=== PATIENT | female | born 1960 | race Caucasian/White ===

== ENCOUNTER → 2017-09-25 | Outpatient (CLI) | payer BC ==
[~2017-09-25] MED LIST: BUDE10.2 INH; CALC667C PO; CHOL100011 PO; CLON0.5T PO; CYAN1TAB29 PO; DULO60CA7 PO; HYOS0.1282 PO; LEVO88TA2 PO; LIDO5CRE19 TP; META800T PO; PREG100C PO; RANI150T4 PO; ROPI1TAB2 PO; SUMA1TAB PO; TRAM50TA2 PO
== END | disposition home or self-care (01) ==
LOC: STAR 09:36
PROVIDERS: ATTEND Thoracic Surgery (Cardiothoracic Vascular Surgery)
DX: Z01.818 Encounter for other preprocedural examination (principal); K21.9 Gastro-esophageal reflux disease without esophagitis; K44.9 Diaphragmatic hernia without obstruction or gangrene; M19.90 Unspecified osteoarthritis, unspecified site; G89.29 Other chronic pain; M81.0 Age-related osteoporosis without current pathological fracture
CPT/HCPCS: 93005

== ENCOUNTER 2017-10-11 05:17 | Observation (INO) | payer BC ==
[~2017-10-11] VITALS: Ht 170.2 cm; Wt 89.8 kg
[2017-10-11] MEDS ORDERED: LACTATED RINGERS 1,000 ML IV SCH (06:22)
[2017-10-11] MEDS ORDERED: FENTANYL PF 100 MCG/2ML ONE ×4 (07:23→09:22)
[2017-10-11] MEDS ORDERED: MIDAZOLAM 1 MG/ML, 2ML ONE (07:23)
[2017-10-11] MEDS ORDERED: PROPOFOL 10 MG/ML, 20ML ONE (07:25)
[2017-10-11] MEDS ORDERED: ROCURONIUM 10 MG/ML,10ML ONE (07:26)
[2017-10-11] MEDS ORDERED: DEXAMETHASONE 4 MG/ML, 1ML ONE ×2 (07:26)
[2017-10-11] MEDS ORDERED: ONDANSETRON 2MG/ML, 2ML ONE (07:26)
[2017-10-11] MEDS ORDERED: SUCCINYLCHOLINE 20 MG/ML, 10ML ONE (07:27)
[2017-10-11] MEDS ORDERED: NEOSTIGMINE 1 MG/ML, 10ML ONE (07:27)
[2017-10-11] MEDS ORDERED: SODIUM CHLORIDE 0.9% PF 10ML ONE (07:28)
[2017-10-11] MEDS ORDERED: GLYCOPYRROLATE 0.4 MG/2 ML, 2ML ONE (07:28)
[2017-10-11] MEDS ORDERED: CEFAZOLIN 1,000 MG ONE ×2 (07:28)
[2017-10-11] MEDS ORDERED: BUPIVACAINE/PF 0.5% ONE (07:42)
[2017-10-11] MEDS ORDERED: EPINEPHRINE 1 MG/ML, 1ML ONE (07:42)
[2017-10-11] MEDS ORDERED: MEPERIDINE/PF 25MG/0.5ML IVPush PRN ×2 (08:00→10:30)
[2017-10-11] MEDS ORDERED: HYDROmorphone 1 MG/ML, 1ML IV PRN ×2 (08:00→10:30)
[2017-10-11] MEDS ORDERED: PROMETHAZINE 25 MG/ML, 1ML IV PRN ×2 (08:00→10:30)
[2017-10-11] MEDS ORDERED: hydrALAzine 20 MG/ML, 1ML IV PRN ×3 (08:00→10:30)
[2017-10-11] MEDS ORDERED: OXYcodone 5 MG/5 ML ORAL.SOL UDC PO PRN ×2 (08:00→10:00)
[2017-10-11] MEDS ORDERED: FENTANYL PF 100 MCG/2ML IV PRN (08:00)
[2017-10-11] MEDS ORDERED: ONDANSETRON 2MG/ML, 2ML IVPush PRN ×3 (08:00→10:30)
[2017-10-11] MEDS ORDERED: ACETAMINOPHEN 325 MG TABLET PO PRN ×2 (08:00→10:30)
[2017-10-11] MEDS ORDERED: LABETALOL 5MG/ML, 20ML IV PRN ×2 (08:00→10:30)
[2017-10-11] MEDS: LACTATED RINGERS 1,000 ML IV SCH ×2 (09:06→17:06)
[2017-10-11] MEDS ORDERED: OXYcodone 5 MG/5 ML ORAL.SOL UDC ONE (09:22)
[2017-10-11] MEDS ORDERED: ACETAMINOPHEN 650 MG/20.3 ML UDC ONE (09:22)
[2017-10-11] MEDS ORDERED: PROMETHAZINE 25 MG/ML, 1ML IM PRN (09:30)
[2017-10-11] MEDS ORDERED: PROMETHAZINE 12.5 MG SUPP PR PRN (09:30)
[2017-10-11] MEDS ORDERED: HYDROcodone/APAP 7.5-325MG/15ML UDC PO PRN (09:30)
[2017-10-11] MEDS ORDERED: LORazepam 2 MG/ML, 1ML IV PRN (09:30)
[2017-10-11] MEDS ORDERED: DIPHENHYDRAMINE 50 MG/ML, 1ML IV PRN (09:30)
[2017-10-11] MEDS: FENTANYL PF 100 MCG/2ML IV PRN ×2 (09:30→09:40)
[2017-10-11] MEDS ORDERED: morphine SULFATE 10 MG/ML, 1ML IV PRN (09:30)
[2017-10-11] MEDS ORDERED: Budesonide/Formoterol Fumarate (Symbicort 160-4.5 Mcg Inhaler) INH SCH ×2 (09:30)
[2017-10-11] MEDS ORDERED: ENALAPRILAT 1.25 MG/ML, 2ML IV PRN (09:30)
[2017-10-11] MEDS ORDERED: HYDROmorphone 2 MG/ML, 1ML ONE (09:56)
[2017-10-11 10:35] VITALS: BP 104/70
[2017-10-11] MEDS ORDERED: FAMOTIDINE 20 MG/2 ML IV SCH (11:00)
[2017-10-11 13:32] VITALS: BP 123/84
[2017-10-11] MEDS ORDERED: CEFAZOLIN PMX 2GM/50ML 50 ML IVPB SCH (15:30)
[2017-10-11] MEDS ORDERED: PREGABALIN 100 MG CAPSULE PO SCH (16:00)
[2017-10-11 17:50] VITALS: BP 114/77
[2017-10-11] MEDS ORDERED: FAMOTIDINE 20 MG TABLET PO SCH (21:00)
[2017-10-11] MEDS ORDERED: ROPINIROLE 1MG TABLET PO SCH (21:00)
[2017-10-12] MEDS ORDERED: ENOXAPARIN 40 MG/0.4 ML SQ SCH (09:00)
== END 2017-10-11 17:59 | disposition home or self-care (01) ==
LOC: OUT 05:17 → MERGE 07:30 → EDSTATUS 07:30 → 4NOR 09:06
PROVIDERS: ADMIT Thoracic Surgery (Cardiothoracic Vascular Surgery); ATTEND Thoracic Surgery (Cardiothoracic Vascular Surgery)
DX: K44.9 Diaphragmatic hernia without obstruction or gangrene (principal); K21.9 Gastro-esophageal reflux disease without esophagitis; J44.9 Chronic obstructive pulmonary disease, unspecified
CPT/HCPCS: 43281; 96365; 96375; G0378; J0171; J0330; J0690; J1100; J1170; J2250; J2405; J2704; J2710; J3010; J3490; J7120; S0028

== ENCOUNTER 2020-04-06 08:56 | Outpatient (CLI) | payer MEDICARE ==
[~2020-04-06 08:56] MED LIST changes: -LIDO5CRE19 TP; +LIDO5CRE26 TP; -ROPI1TAB2 PO; +ROPI1TAB4 PO
== END 2020-04-06 23:59 | disposition home or self-care (01) ==
LOC: CFH 08:56
PROVIDERS: ATTEND Physician Assistant Medical
DX: Z12.31 Encounter for screening mammogram for malignant neoplasm of breast (principal)
CPT/HCPCS: 77067